=== PATIENT | female | born 1965 | race Hispanic/Latino ===

== ENCOUNTER → 2017-11-20 | Outpatient (CLI) | payer MEDICARE ==
[~2017-11-20] MED LIST: IBUP-2077 PO; LANS30CA55 PO; NAPR-1023 PO; ONAB200V IJ
== END ==
LOC: OIH 09:41
PROVIDERS: ATTEND Internal Medicine
DX: M50.323 Other cervical disc degeneration at C6-C7 level (principal); M46.92 Unspecified inflammatory spondylopathy, cervical region
CPT/HCPCS: 72040

== ENCOUNTER → 2017-11-27 | Outpatient (CLI) | payer MEDICARE | END | disposition home or self-care (01) | LOC: RAH 07:43 | PROVIDERS: ATTEND Internal Medicine Gastroenterology | DX: K76.0 Fatty (change of) liver, not elsewhere classified (principal) | CPT/HCPCS: 71046; 76700 ==

== ENCOUNTER 2018-01-08 08:31 | Day surgery (SDC) | payer MEDICARE ==
[~2018-01-08] VITALS: Ht 162.6 cm; Wt 75.7 kg
[~2018-01-08 08:31] MED LIST changes: +SODIUM CHLORIDE 0.9% 1000ML 1,000 ML IV ONE
[2018-01-08 09:28] VITALS: BP 127/82
[2018-01-08] MEDS ORDERED: PROPOFOL 10 MG/ML 20ML VIAL IV ONE ×2 (10:57→11:14)
[2018-01-08 11:21] VITALS: BP 109/89
== END 2018-01-08 12:03 | disposition home or self-care (01) ==
LOC: DAH 08:31 → ENDO 08:31
PROVIDERS: ATTEND Internal Medicine Gastroenterology
DX: K51.50 Left sided colitis without complications (principal); K21.9 Gastro-esophageal reflux disease without esophagitis; G43.909 Migraine, unspecified, not intractable, without status migrainosus; Z86.010 Personal history of colon polyps; Z87.820 Personal history of traumatic brain injury; Z79.899 Other long term (current) drug therapy
CPT/HCPCS: 45380; 88305; 88313; A4606; J2704 ×2; J7030

== ENCOUNTER → 2019-08-14 | Outpatient (CLI) | payer MEDICARE ==
[~2019-08-14] MED LIST changes: -SODIUM CHLORIDE 0.9% 1000ML 1,000 ML IV ONE
== END | disposition home or self-care (01) ==
LOC: OIH 15:56
PROVIDERS: ATTEND Internal Medicine
DX: M47.812 Spondylosis without myelopathy or radiculopathy, cervical region (principal)
CPT/HCPCS: 72040

== ENCOUNTER → 2019-11-26 | Outpatient (CLI) | payer MEDICARE | END | disposition home or self-care (01) | LOC: OIH 14:49 | PROVIDERS: ATTEND Internal Medicine | DX: R05 Cough (principal) | CPT/HCPCS: 71046 ==

== ENCOUNTER → 2020-04-04 | Outpatient (CLI) | payer MEDICARE | END | disposition home or self-care (01) | LOC: OIH 13:32 | PROVIDERS: ATTEND Internal Medicine | DX: M51.04 Intervertebral disc disorders with myelopathy, thoracic region (principal); R07.81 Pleurodynia; R10.12 Left upper quadrant pain; R20.0 Anesthesia of skin; G95.89 Other specified diseases of spinal cord ==

== ENCOUNTER → 2020-12-13 | Outpatient (CLI) | payer OTHER, MEDICARE | END | disposition home or self-care (01) | LOC: OIH 13:07 | PROVIDERS: ATTEND Internal Medicine | DX: S93.409A Sprain of unspecified ligament of unspecified ankle, initial encounter (principal); M25.579 Pain in unspecified ankle and joints of unspecified foot; M79.606 Pain in leg, unspecified; R26.81 Unsteadiness on feet; X58.XXXA Exposure to other specified factors, initial encounter; Y93.89 Activity, other specified; Y92.89 Other specified places as the place of occurrence of the external cause; Y99.8 Other external cause status | CPT/HCPCS: 73590; 73600 ==

== ENCOUNTER → 2022-05-11 | Outpatient (CLI) | payer MEDICARE | END | disposition home or self-care (01) | LOC: RAH 11:03 | PROVIDERS: ATTEND Internal Medicine | DX: K57.30 Diverticulosis of large intestine without perforation or abscess without bleeding (principal); K57.92 Diverticulitis of intestine, part unspecified, without perforation or abscess without bleeding | CPT/HCPCS: 74176 ==

== ENCOUNTER → 2024-01-31 | Outpatient (CLI) | payer MEDICARE | END | disposition home or self-care (01) | LOC: RAH 13:12 | PROVIDERS: ATTEND Internal Medicine | DX: K57.30 Diverticulosis of large intestine without perforation or abscess without bleeding (principal); K51.90 Ulcerative colitis, unspecified, without complications; R10.11 Right upper quadrant pain | CPT/HCPCS: 74176 ==